=== PATIENT | male | born 1990 | race Caucasian/White ===

== ENCOUNTER 2018-01-05 15:15 | Emergency (ER) | payer OTHER ==
[2018-01-05 15:43] VITALS: BP 111/75
[2018-01-05] MEDS ORDERED: Ondansetron TAB* 4 MG PO ONE (15:55)
[2018-01-05] MEDS ORDERED: Acetaminophen TAB* 325 MG PO ONE (15:56)
[2018-01-05] MEDS ORDERED: Ondansetron ODT TAB* 4 MG PO ONE (16:01)
--- NOTE | 2018-01-05 16:07 | UC ---
FLU HPI - HPI Summary HPI Summary: Fever, chills, achiness starting this morning. No cough, calf pain, swelling, uri symptoms leading up to this. No chest pain, sob, nuchal rigidity. He has asthma during change of seasons but does not feel tightness now. he has a headache as well. - History of Current Complaint Chief Complaint: UCGI Stated Complaint: VOMITING, CAMPOS, CHILLS Time Seen by Provider: 01/05/18 15:55 Hx Obtained From: Patient Onset/Duration: Gradual Onset, Lasting Hours Severity Currently: Moderate Severity Initially: Moderate Pain Intensity: 5 Associated Signs & Symptoms: Positive: Fever, Myalgia, Nasal Congestion, Headache, Vomiting. Negative: Diarrhea - Risk Factors Influenza Risk Factors: Negative - Allergy/Home Medications Allergies/Adverse Reactions: Allergies Allergy/AdvReac Type Severity Reaction Status Date / Time hay Allergy Rash Uncoded 01/05/18 15:43 Home Medications: Home Medications Albuterol HFA INHALER* [Ventolin HFA Inhaler*] 2 puff INH Q4H PRN 01/05/18 [ History Confirmed 01/05/18] PMH/Surg Hx/FS Hx/Imm Hx Previously Healthy: No - obesity - Surgical History Surgical History: Yes Surgery Procedure, Year, and Place: tonsils; L4 L5 disc hernia and repairs 2006 and 2008 - Family History Known Family History: Positive: Hypertension - father, Diabetes - mother - Social History Occupation: Employed Full-time Lives: With Family Alcohol Use: None Substance Use Type: None Smoking Status (MU): Never Smoked Tobacco Review of Systems Constitutional: Fever Respiratory: Negative Cardiovascular: Negative Gastrointestinal: Vomiting Musculoskeletal: Myalgia Is Patient Immunocompromised?: No All Other Systems Reviewed And Are Negative: Yes Physical Exam Triage Information Reviewed: Yes Appearance: Well-Appearing, Well-Nourished, Obese Vital Signs: Initial Vital Signs Temp 102.4 F 01/05/18 15:35 Pulse 130 01/05/18 15:35 Resp 19 01/05/18 15:35 BP 111/75 01/05/18 15:35 Pulse Ox 93 01/05/18 15:35 Vital Signs Reviewed: Yes Eyes: Positive: Conjunctiva Clear ENT: Positive: Pharynx normal, Nasal congestion, TM bulging, Uvula midline. Negative: Pharyngeal erythema, Nasal drainage, TM dull, TM red, Tonsillar swelling, Tonsillar exudate, Trismus, Sinus tenderness Neck: Positive: Supple, Nontender, No Lymphadenopathy Respiratory: Positive: Normal breath sounds, No respiratory distress, No accessory muscle use. Negative: Respiratory distress, Decreased breath sounds, Accessory muscle use, Crackles, Rhonchi, Stridor, Wheezing Cardiovascular: Positive: No Murmur, Pulses Normal, Tachycardia Abdomen Description: Positive: Nontender, No Organomegaly, Soft. Negative: Distended, Guarding Musculoskeletal: Positive: Strength Intact, ROM Intact, No Edema Neurological: Positive: Alert, Muscle Tone Normal. Negative: Fatigued Psychological: Positive: Age Appropriate Behavior Skin: Negative: rashes Flu Course/Dx - Course Course Of Treatment: tachycardia and flu like illness. No clinical signs of pneumonia, PE, cardiac etiology, endocarditis or meningitis. Abd exam is benign. Flu neg. This is still c/w viral etiology. He will go to ED if headache or any symptoms worsen for further workup and re eval. Flu result may be a false neg but he is low risk for for flu complications. We willnot treat empirically with tamiflu. He appears quite well and non toxic. He is alert, pleasant and jovial. He does keep the emesis basin near by. - Differential Dx/Diagnosis Differential Diagnosis/HQI/PQRI: Bronchitis, Broncholiolitis, Influenza, Pneumonia, RSV, Upper Respiratory Infection Provider Diagnoses: viral illness. Discharge - Sign-Out/Discharge Documenting (check all that apply): Discharge - Discharge Plan Condition: Good Disposition: HOME Forms: *Work Release Referrals: TRINIDAD Tirado [Primary Care Provider] - - Billing Disposition and Condition Condition: GOOD Disposition: HOME
== END 2018-01-05 16:25 | disposition home or self-care (01) ==
LOC: UCCORT 15:15
DX: B34.9 Viral infection, unspecified (principal); J45.909 Unspecified asthma, uncomplicated
CPT/HCPCS: 87502; 99212; A9270-GY; G0463

== ENCOUNTER 2018-06-03 08:32 | Emergency (ER) | payer OTHER ==
[2018-06-03 08:48] VITALS: BP 122/77
--- NOTE | 2018-06-03 09:25 | UC ---
Throat Pain/Nasal José Antonio HPI - HPI Summary HPI Summary: 27 YO M C/O SORE THROAT FOR DAYS. MILD PAIN. NO FEVER. FEELS TIRED AND ILL. HAS A RUNNY NOSE. NO CHEST PAIN. NO SOB. VOMITED A FEW DAYS AGO. - History of Current Complaint Chief Complaint: UCGeneralIllness Stated Complaint: SORE THROAT, RASH Time Seen by Provider: 06/03/18 09:16 Pain Intensity: 8 - Allergies/Home Medications Allergies/Adverse Reactions: Allergies Allergy/AdvReac Type Severity Reaction Status Date / Time hay Allergy Rash Uncoded 06/03/18 08:47 PMH/Surg Hx/FS Hx/Imm Hx Previously Healthy: Yes Cardiovascular History: Other - NO HTN Other Cardiovascular History: . Respiratory History: Asthma - Surgical History Surgical History: Yes Surgery Procedure, Year, and Place: tonsils; L4 L5 disc hernia and repairs 2006 and 2008 - Family History Known Family History: Positive: Hypertension - father, Diabetes - mother - Social History Alcohol Use: None Substance Use Type: None Smoking Status (MU): Never Smoked Tobacco Review of Systems Constitutional: Chills Skin: Rash Eyes: Negative ENT: Sore Throat, Nasal Discharge, Sinus Congestion Respiratory: Negative Cardiovascular: Negative Gastrointestinal: Negative Genitourinary: Negative Motor: Negative Neurovascular: Negative Musculoskeletal: Negative Neurological: Negative Psychological: Negative Is Patient Immunocompromised?: No All Other Systems Reviewed And Are Negative: Yes Physical Exam Triage Information Reviewed: Yes Appearance: Ill-Appearing - MILDLY Vital Signs: Initial Vital Signs Temp 97.7 F 06/03/18 08:44 Pulse 70 06/03/18 08:44 Resp 16 06/03/18 08:44 BP 122/77 06/03/18 08:44 Pulse Ox 97 06/03/18 08:44 Vital Signs Reviewed: Yes Eye Exam: Normal ENT: Positive: Pharyngeal erythema, Nasal congestion, Nasal drainage, TMs normal , Tonsillar swelling, Tonsillar exudate Neck: Positive: Supple Respiratory: Positive: Lungs clear, Normal breath sounds, No respiratory distress Cardiovascular: Positive: RRR Musculoskeletal Exam: Normal Musculoskeletal: Positive: Strength Intact, ROM Intact Neurological Exam: Normal Psychological Exam: Normal Skin: Positive: rashes - LEFT FOREARM BLANCHING FLAT 2CM DIAMETER ERYTHEMATOUS RASH Throat Pain/Nasal Course/Dx - Course Course Of Treatment: DISCUSSED VIRAL VERSES BACTERIAL INFECTION AND THE ROLE OF ANTIBIOTICS. THE PATIENT WISHES TO BE ON ANTIBIOTICS AT THIS TIME. - Differential Dx/Diagnosis Provider Diagnoses: PHARYNGITIS Discharge - Sign-Out/Discharge Documenting (check all that apply): Patient Departure - Discharge Plan Condition: Stable Disposition: HOME Prescriptions: Amoxicillin PO (*) [Amoxicillin 875 MG (*)] 875 mg PO BID #20 tab Patient Education Materials: Pharyngitis (ED) Forms: *Work Release Referrals: Titus Leal PA [Primary Care Provider] - Additional Instructions: FOLLOW UP WITH YOUR DOCTOR IF NOT COMPLETELY IMPROVED. GET RECHECKED FOR ANY WORSENING OF YOUR CONDITION OR QUESTIONS OR CONCERNS. - Billing Disposition and Condition Condition: STABLE Disposition: Home
== END 2018-06-03 09:30 | disposition home or self-care (01) ==
LOC: UCCORT 08:32
DX: J02.9 Acute pharyngitis, unspecified (principal)
CPT/HCPCS: 87651; 99212; G0463

== ENCOUNTER 2018-07-26 09:20 | Emergency (ER) | payer OTHER ==
[2018-07-26 09:44] VITALS: BP 120/73
[2018-07-26] MEDS ORDERED: Ondansetron ODT TAB* 4 MG PO ONE (10:24)
--- NOTE | 2018-07-26 10:31 | UC ---
UC General HPI - HPI Summary HPI Summary: Patient with stomachache yesterday with nausea and vomiting 3. Today he notes mild nausea and vomiting once; however, now reports that he is feeling much improved. He admits to having some mild associated diarrhea on both days but no blood or mucus. He denies any travel history or recent antibiotic use he admits that his had something similar just prior to him and she is all better. No history of inflammatory bowel disease. Mild headache now. Stomachache resolved post vomiting. - History of Current Complaint Chief Complaint: UCGeneralIllness Stated Complaint: VOMITING STOMACH HEADACHE Time Seen by Provider: 07/26/18 10:19 Hx Obtained From: Patient Pain Intensity: 5 Associated Signs & Symptoms: Positive: Diarrhea, Nausea, Vomiting. Negative: Abdominal Pain, Fever - Allergy/Home Medications Allergies/Adverse Reactions: Allergies Allergy/AdvReac Type Severity Reaction Status Date / Time hay Allergy Rash Uncoded 07/26/18 09:40 PMH/Surg Hx/FS Hx/Imm Hx Previously Healthy: Yes - Surgical History Surgical History: Yes Surgery Procedure, Year, and Place: tonsils; L4 L5 disc hernia and repairs 2006 and 2008 - Family History Known Family History: Positive: Hypertension - father, Diabetes - mother - Social History Occupation: Employed Full-time Lives: With Family Alcohol Use: Occasionally Substance Use Type: None Smoking Status (MU): Never Smoked Tobacco - Immunization History Vaccination Up to Date: Yes Review of Systems Constitutional: Negative Skin: Negative Eyes: Negative ENT: Negative Respiratory: Negative Cardiovascular: Negative Gastrointestinal: Vomiting, Diarrhea, Nausea Genitourinary: Negative Motor: Negative Neurovascular: Negative Musculoskeletal: Negative Neurological: Headache Psychological: Negative Is Patient Immunocompromised?: No All Other Systems Reviewed And Are Negative: Yes Physical Exam Triage Information Reviewed: Yes Appearance: Well-Appearing Vital Signs: Initial Vital Signs Temp 98.7 F 07/26/18 09:37 Pulse 75 07/26/18 09:37 Resp 20 07/26/18 09:37 BP 120/73 07/26/18 09:37 Pulse Ox 98 07/26/18 09:37 Vital Signs Reviewed: Yes Eyes: Positive: Conjunctiva Clear ENT: Positive: Pharynx normal, TMs normal. Negative: Nasal congestion, Nasal drainage Neck: Positive: Supple, Nontender, No Lymphadenopathy Respiratory: Positive: Lungs clear, Normal breath sounds Cardiovascular: Positive: RRR, No Murmur Abdomen Description: Positive: Nontender, No Organomegaly, Soft. Negative: Distended, Guarding Bowel Sounds: Positive: Present Musculoskeletal: Positive: ROM Intact Neurological: Positive: Alert Psychological: Positive: Age Appropriate Behavior Skin Exam: Normal Re-Evaluation - Re-Evaluation First Eval Re-Evaluation Time: 10:44 Change: Unchanged - had zofran. 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 Course/Dx - Course Course Of Treatment: Nontoxic. No acute abdomen. No risks for C. difficile colitis and no history travel. Patient reports feeling much improved at time of exam. His headache is not abrupt or worst nor is it severe. I think the headache is likely due to hydration and likely glucose given his altered eating and drinking habits with this illness. I will rehydrate here by mouth and treat with Zofran. - Differential Dx - Multi-Symptom Provider Diagnoses: vomiting. diarrhea Discharge - Sign-Out/Discharge Documenting (check all that apply): Patient Departure All imaging exams completed and their final reports reviewed: No Studies - Discharge Plan Condition: Stable Disposition: HOME Patient Education Materials: Acute Nausea and Vomiting (ED), Acute Diarrhea (ED ) Forms: *Work Release Referrals: Titus Leal PA [Primary Care Provider] - - Billing Disposition and Condition Condition: STABLE Disposition: Home
== END 2018-07-26 10:51 | disposition home or self-care (01) ==
LOC: UCCORT 09:20
DX: R11.10 Vomiting, unspecified (principal); R19.7 Diarrhea, unspecified
CPT/HCPCS: 99212; A9270-GY; G0463

== ENCOUNTER 2018-09-19 07:24 | Emergency (ER) | payer OTHER ==
[2018-09-19 07:45] VITALS: BP 132/86
--- NOTE | 2018-09-19 08:26 | ED ---
Abdominal Pain/Male - HPI Summary HPI Summary: 28 yr old male with the complaint of right upper abdominal pain, 3/10 presently , non radiating. He has been getting this for the past couple of weeks. Worse with eating fatty things. He has had associated nausea and vomiting. - History of Current Complaint Chief Complaint: UCAbdominalPain Stated Complaint: STOMACHAHCHE,VOMITING Time Seen by Provider: 09/19/18 07:54 Pain Intensity: 4 - Allergies/Home Medications Allergies/Adverse Reactions: Allergies Allergy/AdvReac Type Severity Reaction Status Date / Time hay Allergy Rash Uncoded 09/19/18 07:42 Home Medications: Home Medications FLUoxetine CAP* [Prozac CAP*] 1 tab PO DAILY 09/19/18 [History Confirmed ] metFORMIN* [Glucophage 1000 MG TAB *] 1,000 mg PO BEDTIME 09/19/18 [History Confirmed 09/19/18] PMH/Surg Hx/FS Hx/Imm Hx Endocrine/Hematology History: Reports: Hx Diabetes - pre diabetes Respiratory History: Reports: Hx Asthma - Surgical History Surgery Procedure, Year, and Place: tonsils; L4 L5 disc hernia and repairs 2006 and 2008 Infectious Disease History: No Infectious Disease History: Denies: Traveled Outside the [place] in Last 30 Days - Family History Known Family History: Positive: Hypertension - father, Diabetes - mother - Social History Occupation: Employed Full-time Alcohol Use: Rare Substance Use Type: Reports: None Smoking Status (MU): Never Smoked Tobacco Review of Systems Constitutional: Negative Positive: Abdominal Pain, Vomiting, Nausea All Other Systems Reviewed And Are Negative: Yes Physical Exam Triage Information Reviewed: Yes Vital Signs On Initial Exam: Initial Vitals Temp Pulse Resp BP Pulse Ox 97.4 F 82 17 132/86 97 09/19/18 07:41 09/19/18 07:41 09/19/18 07:41 09/19/18 07:41 09/19/18 07:41 Vital Signs Reviewed: Yes Appearance: Positive: Well-Appearing, Pain Distress, Obese Skin: Positive: Warm, Skin Color Reflects Adequate Perfusion Head/Face: Positive: Normal Head/Face Inspection Eyes: Positive: EOMI ENT: Positive: Normal ENT inspection Neck: Positive: Nontender Respiratory/Lung Sounds: Positive: Clear to Auscultation, Breath Sounds Present Cardiovascular: Positive: RRR. Negative: Murmur Abdomen Description: Positive: Nontender, Other: - obese Musculoskeletal: Positive: Strength/ROM Intact Neurological: Positive: Sensory/Motor Intact, Alert, Oriented to Person Place, Time, CN Intact II-III Psychiatric: Positive: Normal - Faina Coma Scale Best Eye Response: 4 - Spontaneous Best Motor Response: 6 - Obeys Commands Best Verbal Response: 5 - Oriented Coma Scale Total: 15 Diagnostics - Vital Signs Vital Signs Temp Pulse Resp BP Pulse Ox 09/19/18 07:41 97.4 F 82 17 132/86 97 - Laboratory Lab Statement: Any lab studies that have been ordered have been reviewed, and results considered in the medical decision making process. Abdominal Pain Fem Course/Dx - Course Course Of Treatment: Patient with abdominal pain. possible mass in the liver on his sonogram. The patient is going to the ER from here for further work up. The patient declines ambulance transport. - Diagnoses Provider Diagnoses: Abdominal pain, right upper quadrant Discharge - Sign-Out/Discharge Documenting (check all that apply): Patient Departure All imaging exams completed and their final reports reviewed: No Studies - Discharge Plan Condition: Good Disposition: HOME-RECOMMEND TO ED Patient Education Materials: Abdominal Pain (ED) Referrals: Farrah Alarcon [Primary Care Provider] - Additional Instructions: You are referred to the ER for further work up for your abdominal pain. YOu should go there after leaving this urgent care today. Do not delay. You have declined ambulance transport. - Billing Disposition and Condition Condition: GOOD Disposition: Home-Recommend to ED
== END 2018-09-19 08:24 | disposition home health service (06) ==
LOC: UCCORT 07:24
DX: R10.11 Right upper quadrant pain (principal)
CPT/HCPCS: 99212; G0463

== ENCOUNTER 2022-09-23 10:11 | Inpatient (IN) ==
[~2022-09-23 10:11] MED LIST: HYDROmorphone 1 MG/1 ML SYRINGE IV PRN; Lactated Ringers 1000 ml BAG 1,000 ML IV SCH; Naloxone 0.4 mg VIAL 0.4 mg/ml 1 ml VIAL IV PRN; Ondansetron 4 mg VIAL 2 MG/ML 2 ml VIAL IV PRN; Scopolamine 1 mg/72hr PATCH TRANSDERM ONE
[2022-09-23] MEDS ORDERED: Heparin 5000 UNITS/ML 1 mL VIAL ONE (10:34)
[2022-09-23] MEDS ORDERED: ceFAZolin *3* GM in NS PREMIX 3 GM/100 ML BAG IV ONE (10:34)
[2022-09-23] MEDS ORDERED: Propofol 10 MG/ML 20 ML BTL ONE ×3 (10:45→16:38)
[2022-09-23] MEDS ORDERED: Lidocaine 2% PF 5 ML VIAL ONE (10:45)
[2022-09-23] MEDS ORDERED: Rocuronium 50 mg VIAL 10 mg/ml 5 ml VIAL (50 mg) ONE ×3 (10:45→16:34)
[2022-09-23] MEDS ORDERED: Scopolamine 1 mg/72hr PATCH ONE (10:51)
[2022-09-23] MEDS: Buffered Lidocaine 1% SYRIN 1 ml INTRADERM ONE ×2 (10:55→22:08)
[2022-09-23] MEDS ORDERED: Ondansetron 4 mg VIAL 2 MG/ML 2 ml VIAL ONE ×2 (10:57→16:30)
[2022-09-23] MEDS ORDERED: Midazolam 2 mg/2 ml VIAL 1 mg/ml 2 ml VIAL (2 mg) ONE (10:57)
[2022-09-23] MEDS ORDERED: fentaNYL 100 mcg/2 ml 50 MCG/ML VIAL ONE ×3 (10:57→18:06)
[2022-09-23] MEDS ORDERED: Methylene Blue 0.5 % 50 MG/10 ML AMP IV ONE (13:16)
[2022-09-23] MEDS ORDERED: fentaNYL 250 mcg/5 ml 50 MCG/ML 5 ml VIAL (250 MCG) ONE (14:31)
[2022-09-23] MEDS ORDERED: Levalbuterol HFA INHALER MDI ONE (16:49)
[2022-09-23] MEDS: fentaNYL 100 mcg/2 ml 50 MCG/ML VIAL IV PRN ×2 (17:27→18:08)
[2022-09-23] MEDS ORDERED: HYDROcodone/ACET. 7.5/325 LIQ 15 ML UDC PO PRN (17:28)
[2022-09-23] MEDS ORDERED: Acetaminophen IV 1 GM/100ML 1,000 MG/100 ML BAG IV PRN (17:28)
[2022-09-23] MEDS ORDERED: HYDROmorphone 0.5 MG/0.5 ML SYRINGE IV SLOW PU PRN (17:36)
[2022-09-23] MEDS ORDERED: HYDROmorphone 1 MG/1 ML SYRINGE IV SLOW PU PRN (17:36)
[2022-09-23] MEDS ORDERED: Albuterol HFA INHALER 8 gm MDI INH PRN (17:39)
[2022-09-23] MEDS: Lactated Ringers 1000 ml BAG 1,000 ML IV SCH (19:48)
[2022-09-23] MEDS: Ondansetron 4 mg VIAL 2 MG/ML 2 ml VIAL IV PRN (22:14)
[2022-09-23] MEDS: Famotidine IV 10 MG/ML 2 ml VIAL (20 mg) IV SLOW PU SCH (22:14)
[2022-09-23] MEDS: Heparin 5000 UNITS/ML 1 mL VIAL SUBCUT SCH (22:14)
[2022-09-24] MEDS: Lactated Ringers 1000 ml BAG 1,000 ML IV SCH ×2 (02:27→09:21)
[2022-09-24] MEDS: Heparin 5000 UNITS/ML 1 mL VIAL SUBCUT SCH ×2 (06:22→14:25)
[2022-09-24] MEDS: Ondansetron 4 mg VIAL 2 MG/ML 2 ml VIAL IV PRN (08:35)
[2022-09-24] MEDS: Famotidine IV 10 MG/ML 2 ml VIAL (20 mg) IV SLOW PU SCH (08:35)
[2022-09-24 15:17] VITALS: BP 149/67
[2022-09-24] MEDS ORDERED: D5W 1/2 NS KCl 20 meq 1000 ml 1,000 ML IV SCH (18:00)
== END 2022-09-24 16:00 | disposition home or self-care (01) | DRG 403 ==
LOC: MCHOB 10:11 → SSU 18:36
PROVIDERS: ADMIT Surgery; ATTEND Surgery